=== PATIENT | female | born 1990 | race Two or more races ===

== ENCOUNTER 2018-04-28 16:19 | Emergency (ER) | payer SELFPAY ==
[~2018-04-28] VITALS: Ht 165.1 cm; Wt 68.0 kg
[2018-04-28 16:24] VITALS: BP 123/82; PULSE 69; RESP 16; TEMP 99; O2SAT 100
== END 2018-04-28 16:51 | disposition left against medical advice (07) ==
LOC: NED 16:19
DX: R51 Headache (principal); Z53.21 Procedure and treatment not carried out due to patient leaving prior to being seen by health care provider
CPT/HCPCS: 99281